=== PATIENT | male | born 1950 | race Two or more races ===

== ENCOUNTER 2018-12-18 11:00 | Outpatient (CLI) | payer MEDICARE | END 2018-12-18 23:59 | disposition home or self-care (01) | LOC: WOU 11:00 | PROVIDERS: ATTEND Podiatrist Foot & Ankle Surgery | DX: M21.371 Foot drop, right foot (principal); B91 Sequelae of poliomyelitis; L84 Corns and callosities; M79.671 Pain in right foot; Z98.890 Other specified postprocedural states; Z72.0 Tobacco use | CPT/HCPCS: G0463 ==